=== PATIENT | female | born 1975 | race Caucasian/White ===

== ENCOUNTER → 2018-02-01 | Outpatient (CLI) | payer BC ==
--- NOTE | 2018-02-06 08:33 | MM ---
Reason for exam: screening (asymptomatic). Last mammogram was performed 13 years and 9 months ago. History: Family history of breast cancer. Physical Findings: A clinical breast exam by your physician is recommended on an annual basis and results should be correlated with mammographic findings. MG 3D Screening Mammo W/Cad Bilateral CC and MLO view(s) were taken. Prior study comparison: April 21, 2004, bilateral diagnostic mammogram. There are scattered fibroglandular densities. There is a round right upper outer quadrant probable lymph node. No suspicious abnormality in the left breast. Right upper outer quadrant distortion 7cm from nipple. These results were verbally communicated with the patient and result sheet given to the patient on 02/01/18. ASSESSMENT: Incomplete: need additional imaging evaluation, BI-RAD 0 RECOMMENDATION: Ultrasound of the right breast. [facility] will attempt to contact patient to return for ultrasound.
== END | disposition home or self-care (01) ==
LOC: RADMAMWWP 08:49
PROVIDERS: ATTEND Obstetrics & Gynecology Obstetrics
DX: Z12.31 Encounter for screening mammogram for malignant neoplasm of breast (principal)
CPT/HCPCS: 77063; 77067

== ENCOUNTER → 2018-03-01 | Outpatient (CLI) | payer BC ==
--- NOTE | 2018-03-03 12:20 | USB ---
Reason for exam: additional evaluation requested from abnormal screening. History: Family history of breast cancer. Physical Findings: Nurse Summary: a 1 cm palpable abnormality at 10 o'clock. US Breast Workup Limited RT Right limited breast ultrasound including focal area of concern, retroareolar and axilla demonstrates a 5 x 5 mm oval lymph node at 11 o'clock. These results were verbally communicated with the patient and result sheet given to the patient on 03/01/18. ASSESSMENT: Benign, BI-RAD 2 RECOMMENDATION: Routine screening mammogram of both breasts in 1 year.
== END | disposition home or self-care (01) ==
LOC: RADUSWWP 08:47
PROVIDERS: ATTEND Obstetrics & Gynecology Obstetrics
DX: R92.8 Other abnormal and inconclusive findings on diagnostic imaging of breast (principal)

== ENCOUNTER → 2018-03-15 | Outpatient (CLI) | payer BC ==
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
== END ==
LOC: RADMRIMAIN 20:02
PROVIDERS: ATTEND Family Medicine
DX: M47.22 Other spondylosis with radiculopathy, cervical region (principal)
CPT/HCPCS: 72141

== ENCOUNTER → 2019-12-25 | Outpatient (CLI) | payer BC ==
--- NOTE | 2019-12-26 09:40 | MM ---
Reason for exam: screening (asymptomatic). Last mammogram was performed 1 year and 11 months ago. History: Family history of breast cancer. Physical Findings: A clinical breast exam by your physician is recommended on an annual basis and results should be correlated with mammographic findings. MG 3D Screening Mammo W/Cad Bilateral CC and MLO view(s) were taken. Prior study comparison: February 01, 2018, bilateral MG 3d screening mammo w/cad. April 21, 2004, bilateral diagnostic mammogram. The breast tissue is heterogeneously dense. This may lower the sensitivity of mammography. There is no discrete abnormality. No significant changes when compared with prior studies. ASSESSMENT: Negative, BI-RAD 1 RECOMMENDATION: Routine screening mammogram of both breasts in 1 year.
== END | disposition home or self-care (01) ==
LOC: RADMAMWWP 14:28
PROVIDERS: ATTEND Obstetrics & Gynecology Obstetrics
DX: Z12.31 Encounter for screening mammogram for malignant neoplasm of breast (principal)
CPT/HCPCS: 77063; 77067

== ENCOUNTER → 2021-11-28 | Outpatient (CLI) | payer BC ==
--- NOTE | 2021-11-29 08:10 | MM ---
Reason for Exam: Screening (asymptomatic). Last mammogram was performed 1 year(s) and 11 month(s) ago. Patient History: Menarche at age 13. Maternal cousin had breast cancer, age 40. Last menstrual period: 11/17/2021 Risk Values: Vera 5 year model risk: 0.6%. NCI Lifetime model risk: 7.0%. Prior Study Comparison: 04/21/2004 Bilateral Diagnostic Mammogram, [facility]. 02/01/2018 Bilateral Screening Mammogram, [facility]. 12/25/2019 Bilateral Screening Mammogram, [facility]. Tissue Density: The breast tissue is heterogeneously dense. This may lower the sensitivity of mammography. Findings: Analyzed By CAD. There is no suspicious group of microcalcifications or new suspicious mass in either breast. Stable chronic nodularity within the right breast. No significant change from prior exams. Overall Assessment: Benign, BI-RAD 2 Management: Screening Mammogram of both breasts in 1 year. A clinical breast exam by your physician is recommended on an annual basis and results should be correlated with mammographic findings. Electronically signed and approved by: Gianfranco Hoff D.O.
== END | disposition home or self-care (01) ==
LOC: RADMAMWWP 07:34
PROVIDERS: ATTEND Obstetrics & Gynecology Obstetrics
DX: Z12.31 Encounter for screening mammogram for malignant neoplasm of breast (principal); Z80.3 Family history of malignant neoplasm of breast
CPT/HCPCS: 77063; 77067

== ENCOUNTER 2022-11-04 12:54 | Emergency (ER) | payer BC ==
[2022-11-04 13:15] VITALS: RESP 20
--- NOTE | 2022-11-04 14:21 | ED ---
Animal Bite HPI - General Source: patient, RN notes reviewed Mode of arrival: ambulatory Limitations: no limitations <Abdoulaye Garcia - Last Filed: 11/04/22 14:19> <Nigel Velez - Last Filed: 11/04/22 16:03> - General Chief Complaint: Animal Bite Stated Complaint: Dog Bite Time Seen by Provider: 11/04/22 14:20 - History of Present Illness Initial Comments: 47-year-old female presents emergency from chief complaint of dog bite/puncture wound to her right hand. This happened 2 daysand Augmentin yesterday she states she did have some pain in her epigastric that's improved today states that she noticed increasing red streaking up to her right elbow region. Patient states that this was her dog. Patient up-to-date on tetanus. (Abdoulaye Garcia) 47-year-old female presenting to the ED with a chief complaint of right hand wound. Patient states 2 days ago her dogs were fighting. States that she stuck her right hand into her dog's mouth to pull him off. Notes in this process one of the dogs teeth punctured her right hand between her thumb and index finger. States started to develop redness and swelling of this and followed up with her PCP who placed her on Augmentin yesterday. Since then reports worsening pain and swelling of the hand and now streaking up the arm. Denies fever. Tetanus up to date. No other complaints. (Nigel Velez) - Related Data Allergies Allergy/AdvReac Type Severity Reaction Status Date / Time No Known Allergies Allergy Verified 11/04/22 13:15 Review of Systems ROS Other: All systems not noted in ROS Statement are negative. <Abdoulaye Garcia - Last Filed: 11/04/22 14:19> ROS Other: All systems not noted in ROS Statement are negative. <Nigel Velez - Last Filed: 11/04/22 16:03> ROS Statement: Those systems with pertinent positive or pertinent negative responses have been documented in the HPI. Past Medical History Past Medical History: No Reported History Past Surgical History: Tubal Ligation Additional Past Surgical History / Comment(s): bladder lift Smoking Status: Never smoker Past Alcohol Use History: None Reported Past Drug Use History: None Reported <Abdoulaye Garcia - Last Filed: 11/04/22 14:19> General Exam Limitations: no limitations <Abdoulaye Garcia - Last Filed: 11/04/22 14:19> General appearance: alert, in no apparent distress Eye exam: Present: normal appearance Neck exam: Present: normal inspection Respiratory exam: Present: normal lung sounds bilaterally Cardiovascular Exam: Present: regular rate, normal rhythm GI/Abdominal exam: Present: soft Extremities exam: Present: other (Strength and sensation of right upper extremity intact. Full active flexion and extension of the fingers without significant pain. Patient's right hand does have a punctate lesion in the webspace between digits 1 and 2 without active drainage. ) Neurological exam: Present: alert, oriented X3 Skin exam: Present: other (Warmth, swelling, erythema of the right hand circumfrential with streaking up the arm ) <Nigel Velez - Last Filed: 11/04/22 16:03> - General Exam Comments Initial Comments: Visual Physical Exam Vital signs reviewed General: Well-appearing, nontoxic, no acute distress. Head: Normocephalic, atraumatic Eyes: PERRLA, EOMI ENT: Airway patent Chest: Nonlabored breathing Skin: No visual rash, normal skin tone Neuro: Alert and oriented 3 Musculoskeletal: No gross abnormalities (Abdoulaye Garcia) Course Vital Signs 11/04/22 13:11 Temperature 98.4 F Pulse Rate 97 Respiratory 20 Rate Blood Pressure 127/81 O2 Sat by Pulse 98 Oximetry Medical Decision Making <Abdoulaye Garcia - Last Filed: 11/04/22 14:19> - Lab Data Result diagrams: 11/04/22 14:16 11/04/22 14:16 <Nigel Velez - Last Filed: 11/04/22 16:03> - Medical Decision Making I performed a quick note portion of this chart signed Abdoulaye Garcia PA-C (Abdoulaye Garcia) Was pt. sent in by a medical professional or institution (SANJEEV Zarco, SAND CUTTING MACHINE OPERATOR, urgent care, hospital, or halfway...) When possible be specific @ -No Did you speak to anyone other than the patient for history (EMS, parent, family, police, friend...)? What history was obtained from this source @ -No Did you review nursing and triage notes (agree or disagree)? Why? @ -I reviewed and agree with nursing and triage notes Were old charts reviewed (outside hosp., previous admission, EMS record, old EKG, old radiological studies, urgent care reports/EKG's, halfway records)? Report findings @ -No old charts were reviewed Differential Diagnosis (chest pain, altered mental status, abdominal pain women, abdominal pain men, vaginal bleeding, weakness, fever, dyspnea, syncope, headache, dizziness, GI bleed, back pain, seizure, CVA, palpatations, mental health, musculoskeletal)? @ -Differential Musculoskeletal Muscular strain, contusion, ligament sprain, fracture, arthritis, septic arthritis, bursitis, cellulitis, muscle spasm, nerve compression, DVT, arterial occlusion, herpes zoster, electrolyte abnormality, tumor.... This is not meant to be in all inclusive list EKG interpreted by me (3pts min.). @ -None X-rays interpreted by me (1pt min.). @ -None done CT interpreted by me (1pt min.). @ -None done U/S interpreted by me (1pt. min.). @ -None done What testing was considered but not performed or refused? (CT, X-rays, U/S, labs)? Why? @ -None What meds were considered but not given or refused? Why? @ -None Did you discuss the management of the patient with other professionals (professionals i.e. , PA, SAND CUTTING MACHINE OPERATOR, lab, RT, psych nurse, social work assistant, blind lacer, teacher, pharmaceutical officer, director case management)? Give summary @ -No Was smoking cessation discussed for >3mins.? @ -No Was critical care preformed (if so, how long)? @ -No Were there social determinants of health that impacted care today? How? (Homelessness, low income, unemployed, alcoholism, drug addiction, t ransportation, low edu. Level, literacy, decrease access to med. care, [facility], rehab)? @ -No Was there de-escalation of care discussed even if they declined (Discuss DNR or withdrawal of care, Hospice)? DNR status @ -No What co-morbidities impacted this encounter? (DM, HTN, Smoking, COPD, CAD, Cancer, CVA, ARF, Chemo, Hep., AIDS, mental health diagnosis, sleep apnea, morbid obesity)? @ -None Was patient admitted / discharged? Hospital course, mention meds given and route, prescriptions, significant lab abnormalities, going to OR and other pertinent info. @ -Left AMA 47-year-old female presents to the ED with a chief complaint of wound to right hand. Blood cultures obtained. Laboratory studies did show elevation of white blood cell count at 10.9 and elevated neutrophils 8.7 otherwise laboratory studies including chemistry panel unremarkable. Due to failure of outpatient treatment now streaking up the arm patient was advised observation stay for IV antibiotics. At this time, patient declined and left AMA as patient notes she was just hired at her new job and is on a 90 day probation period. Was provided 3 g dose of IV Unasyn prior to patient leaving. Undiagnosed new problem with uncertain prognosis? @ -No Drug Therapy requiring intensive monitoring for toxicity (Heparin, Nitro, Insulin, Cardizem)? @ -No Were any procedures done? @ -No Diagnosis/symptom? @ -Cellulitis right hand, dog bite Acute, or Chronic, or Acute on Chronic? @ -Acute Uncomplicated (without systemic symptoms) or Complicated (systemic symptoms)? @ -Uncomplicated Side effects of treatment? @ -No Exacerbation, Progression, or Severe Exacerbation? @ -No Poses a threat to life or bodily function? How? (Chest pain, [place], [place], pneumonia, PE, COPD, DKA, ARF, appy, cholecystitis, CVA, Diverticulitis, Homicidal, Suicidal, threat to staff... and all critical care pts) @ -Yes, significant cellulitis (Nigel Velez) - Lab Data Lab Results 11/04/22 11/04/22 11/04/22 Range/Units 14:16 14:16 14:16 WBC 10.9 H (3.8-10.6) k/uL RBC 4.66 (3.80-5.40) m/uL Hgb 14.4 (11.4-16.0) gm/dL Hct 42.3 (34.0-46.0) % MCV 90.8 (80.0-100.0) fL MCH 30.8 (25.0-35.0) pg MCHC 33.9 (31.0-37.0) g/dL RDW 12.3 (11.5-15.5) % Plt Count 262 (150-450) k/uL MPV 7.4 Neutrophils % 80 % Lymphocytes % 14 % Monocytes % 5 % Eosinophils % 0 % Basophils % 0 % Neutrophils # 8.7 H (1.3-7.7) k/uL Lymphocytes # 1.5 (1.0-4.8) k/uL Monocytes # 0.5 (0-1.0) k/uL Eosinophils # 0.0 (0-0.7) k/uL Basophils # 0.0 (0-0.2) k/uL Sodium 138 (137-145) mmol/L Potassium 4.8 (3.5-5.1) mmol/L Chloride 103 (98-107) mmol/L Carbon Dioxide 24 (22-30) mmol/L Anion Gap 11 mmol/L BUN 20 H (7-17) mg/dL Creatinine 0.87 (0.52-1.04) mg/dL Est GFR (CKD-EPI)AfAm >90 (>60 ml/min/1.73 sqM) Est GFR (CKD-EPI)NonAf 80 (>60 ml/min/1.73 sqM) Glucose 111 H (74-99) mg/dL Plasma Lactic Acid Jose 1.0 (0.7-2.0) mmol/L Calcium 9.8 (8.4-10.2) mg/dL Total Bilirubin 1.0 (0.2-1.3) mg/dL AST 34 (14-36) U/L ALT 33 (4-34) U/L Alkaline Phosphatase 87 (38-126) U/L Total Protein 7.4 (6.3-8.2) g/dL Albumin 4.2 (3.5-5.0) g/dL Disposition <Abdoulaye Garcia - Last Filed: 11/04/22 14:19> Time of Disposition: 16:03 <Nigel Velez - Last Filed: 11/04/22 16:03> Clinical Impression: Cellulitis of right hand Disposition: LEFT AGAINST MEDICAL ADVICE Instructions (If sedation given, give patient instructions): Animal Bite (ED) Referrals: Emilio Barr DO [Primary Care Provider] - 1-2 days
[2022-11-04 14:34] LABS: Basophils % (A) 0 %; Eosinophils % (A) 0 %; HCT 42.3 % (34.0-46.0); HGB 14.4 gm/dL (11.4-16.0); Lymphocytes # (A) 1.5 k/uL (1.0-4.8); Lymphocytes % (A) 14 %; MCH 30.8 pg (25.0-35.0); MCHC 33.9 g/dL (31.0-37.0); MCV 90.8 fL (80.0-100.0); Mean Platelet Volume 7.4; Monocytes # (A) 0.5 k/uL (0-1.0); Monocytes % (A) 5 %; Neutrophils # (A) 8.7 k/uL (1.3-7.7); Neutrophils % (A) 80 %; Platelet Count 262 k/uL (150-450); RBC 4.66 m/uL (3.80-5.40); RDW 12.3 % (11.5-15.5); WBC 10.9 k/uL (3.8-10.6)
[2022-11-04 14:51] LABS: ALT 33 U/L (4-34); AST 34 U/L (14-36); African American GFR (CKD) >90 (>60 ml/min/1.73 sqM); Albumin 4.2 g/dL (3.5-5.0); Alkaline Phosphatase 87 U/L (38-126); Anion Gap 11 mmol/L; Blood Urea Nitrogen 20 mg/dL (7-17); Calcium 9.8 mg/dL (8.4-10.2); Carbon Dioxide 24 mmol/L (22-30); Chloride 103 mmol/L (98-107); Glucose 111 mg/dL (74-99); Non-African American GFR(CKD) 80 (>60 ml/min/1.73 sqM); Potassium 4.8 mmol/L (3.5-5.1); Sodium 138 mmol/L (137-145); Total Protein 7.4 g/dL (6.3-8.2)
--- NOTE | 2022-11-04 15:22 | XR ---
Right hand. HISTORY: Cellulitis. COMPARISON: None. TECHNIQUE: 3 views the right hand were obtained. FINDINGS: There is no fracture, dislocation, intraosseous or intra-articular abnormality. There is no soft tiss ue abnormality seen no radiopaque foreign body or soft tissue gas. There is no cortical destruction o r periosteal reaction. IMPRESSION: No significant abnormality seen.
[2022-11-04] MEDS ORDERED: AMPICILLIN-SULBACTAM 3 GM in SODIUM CHLORIDE 0.9% 100 ML IVPB STA (15:47)
[2022-11-04 17:34] VITALS: BP 122/76; PULSE 90; TEMP 98.2
== END 2022-11-04 17:31 | disposition left against medical advice (07) ==
LOC: EC 12:54
DX: S61.451A Open bite of right hand, initial encounter (principal); L03.113 Cellulitis of right upper limb; Z53.29 Procedure and treatment not carried out because of patient's decision for other reasons; W54.0XXA Bitten by dog, initial encounter
CPT/HCPCS: 36415; 80053; 83605; 85025; 87040; 73130; 99283; 96365; J0295

== ENCOUNTER 2023-12-02 10:22 | Emergency (ER) | payer SELFPAY ==
[2023-12-02 10:37] VITALS: TEMP 98
[2023-12-02 10:55] VITALS: RESP 16
[2023-12-02] MEDS: SODIUM CHLORIDE 0.9% 1,000 ML IV STA ×2 (11:23→12:45)
[2023-12-02] MEDS: HYDROmorphone 0.5 MG/0.5 ML SYRINGE IVP STA ×2 (11:27→12:47)
[2023-12-02] MEDS: ONDANSETRON 4 MG/2 ML VIAL IVP STA (11:32)
[2023-12-02] MEDS: KETOROLAC 15 MG/ML 1 ML VIAL IVP STA ×2 (11:35→12:50)
--- NOTE | 2023-12-02 11:46 | ED ---
Abdominal Pain HPI - General Chief Complaint: Abdominal Pain Stated Complaint: Abdominal Pain Time Seen by Provider: 12/02/23 10:47 Source: patient, RN notes reviewed Mode of arrival: ambulatory Limitations: no limitations - History of Present Illness Initial Comments: This is a 48-year-old female presenting with nausea, vomiting and abdominal pain (8 out of 10) x 2 days. Patient states she got possible food poisoning either from a make chicken sandwich or bad creamer yesterday. Patient endorses decreased appetite and chills. States she is unable to keep food down and has just recently been able to hold down Gatorade. Endorses vomiting bile but not fluid or blood. Patient states pain is worse in left lower quadrant with no history of diverticulitis. Patient denies fever, body aches, chest pain, dyspnea, diarrhea, constipation, dizziness. MD Complaint: abdominal pain Onset/Timin -: days(s) Location: LLQ Radiation: none Migration to: no migration Severity scale (1-10): 8 Consistency: constant Worsens With: eating Context: possible food poisoning Associated Symptoms: nausea, vomiting, chills Treatments Prior to Arrival: NSAIDs - Related Data Allergies Allergy/AdvReac Type Severity Reaction Status Date / Time No Known Allergies Allergy Verified 12/02/23 10:37 Review of Systems ROS Statement: Those systems with pertinent positive or pertinent negative responses have been documented in the HPI. ROS Other: All systems not noted in ROS Statement are negative. Past Medical History Past Medical History: No Reported History Past Surgical History: Tubal Ligation Additional Past Surgical History / Comment(s): bladder lift Smoking Status: Never smoker Past Alcohol Use History: Occasional Past Drug Use History: None Reported General Exam Limitations: no limitations General appearance: alert, in no apparent distress Head exam: Present: atraumatic, normocephalic, normal inspection Eye exam: Present: normal appearance, PERRL, EOMI. Absent: scleral icterus, conjunctival injection, periorbital swelling ENT exam: Present: normal exam, mucous membranes moist Neck exam: Present: normal inspection. Absent: tenderness, meningismus, lymphadenopathy Respiratory exam: Present: normal lung sounds bilaterally. Absent: respiratory distress, wheezes, rales, rhonchi, stridor Cardiovascular Exam: Present: regular rate, normal rhythm, normal heart sounds. Absent: systolic murmur, diastolic murmur, rubs, gallop, clicks GI/Abdominal exam: Present: soft, tenderness (Positive diffuse tenderness especially in left lower quadrant and left upper quadrant. Negative guarding, tympanic tenderness, rebound tenderness), diminished bowel sounds. Absent: distended, guarding, rebound, rigid Extremities exam: Present: normal inspection, full ROM, normal capillary refill. Absent: tenderness, pedal edema, joint swelling, calf tenderness Back exam: Present: normal inspection Neurological exam: Present: alert, oriented X3, CN II-XII intact Psychiatric exam: Present: normal affect, normal mood Skin exam: Present: warm, dry, intact, normal color. Absent: rash Course Vital Signs 12/02/23 12/02/23 12/02/23 10:33 10:48 11:40 Temperature 98.0 F 98.0 F Pulse Rate 142 H 115 H 16 L Respiratory 20 16 16 Rate Blood Pressure 118/69 131/88 137/67 O2 Sat by Pulse 100 100 98 Oximetry 12/02/23 12/02/23 12:46 13:35 Temperature Pulse Rate 120 H 120 H Respiratory 16 16 Rate Blood Pressure 110/59 110/59 O2 Sat by Pulse 96 96 Oximetry Medical Decision Making - Medical Decision Making Was pt. sent in by a medical professional or institution (, PA, REFINERY SUPERINTENDENT, urgent care, hospital, or intermediate...) When possible be specific @ -No Did you speak to anyone other than the patient for history (EMS, parent, family, police, friend...)? What history was obtained from this source @ -No Did you review nursing and triage notes (agree or disagree)? Why? @ -I reviewed and agree with nursing and triage notes Were old charts reviewed (outside hosp., previous admission, EMS record, old EKG, old radiological studies, urgent care reports/EKG's, intermediate records)? Report findings @ -No old charts were reviewed Differential Diagnosis (chest pain, altered mental status, abdominal pain women, abdominal pain men, vaginal bleeding, weakness, fever, dyspnea, syncope, headache, dizziness, GI bleed, back pain, seizure, CVA, palpatations, mental health, musculoskeletal)? @ -Differential Abdominal Pain Women: Appendicitis, Cholecystitis, diverticulosis, ischemic bowel, pancreatitis, hepatitis, UTI, gastroenteritis, AAA, incarcerated hernia, bowel obstruction, constipation, inflammatory bowel, hepatitis, peptic ulcer disease, splenic infarction, perforated viscus, vulvitis, ovarian torsion, PID, kidney stone, placenta abruption, this is not meant to be an all-inclusive list EKG interpreted by me (3pts min.). @ -Not done X-rays interpreted by me (1pt min.). @ -None done CT interpreted by me (1pt min.). @ -None done U/S interpreted by me (1pt. min.). @ -None done What testing was considered but not performed or refused? (CT, X-rays, U/S, labs)? Why? @ -None What meds were considered but not given or refused? Why? @ -None Did you discuss the management of the patient with other professionals (professionals i.e. , PA, REFINERY SUPERINTENDENT, lab, RT, psych nurse, dialysis social worker, radio electrician, teacher, health officer, case planner)? Give summary @ -No Was smoking cessation discussed for >3mins.? @ -No Was critical care preformed (if so, how long)? @ -No Were there social determinants of health that impacted care today? How? (Homelessness, low income, unemployed, alcoholism, drug addiction, transportation, low edu. Level, literacy, decrease access to med. care, group home, rehab)? @ -No Was there de-escalation of care discussed even if they declined (Discuss DNR or withdrawal of care, Hospice)? DNR status @ -No What co-morbidities impacted this encounter? (DM, HTN, Smoking, COPD, CAD, Cancer, CVA, ARF, Chemo, Hep., AIDS, mental health diagnosis, sleep apnea, morbid obesity)? @ -None Was patient admitted / discharged? Hospital course, mention meds given and r oute, prescriptions, significant lab abnormalities, going to OR and other pertinent info. @ -Discharge. Patient given IV normal saline, Toradol and Dilaudid for symptoms. Patient notes improvement in symptoms. Work note provided upon request. Patient sent home with [employer] starter pack. Advised increase oral fluid intake, comfort khadar/comfort tea and AARON diet Undiagnosed new problem with uncertain prognosis? @ -No Drug Therapy requiring intensive monitoring for toxicity (Heparin, Nitro, Insulin, Cardizem)? @ -No Were any procedures done? @ -No Diagnosis/symptom? @ -Foodborne intoxication, acute gastroenteritis Acute, or Chronic, or Acute on Chronic? @ -Acute Uncomplicated (without systemic symptoms) or Complicated (systemic symptoms)? @ -Uncomplicated Side effects of treatment? @ -No Exacerbation, Progression, or Severe Exacerbation? @ -No Poses a threat to life or bodily function? How? (Chest pain, [place], [place], pneumonia, PE, COPD, DKA, ARF, appy, cholecystitis, CVA, Diverticulitis, Homicidal, Suicidal, threat to staff... and all critical care pts) @ -No - Lab Data Lab Results 12/02/23 Range/Units 11:22 Urine HCG, Qual Not Detected (Not Detectd) Disposition Clinical Impression: Gastroenteritis, Food poisoning Disposition: HOME SELF-CARE Condition: Good Instructions (If sedation given, give patient instructions): Gastroenteritis (ED), Food Poisoning (ED) Is patient prescribed a controlled substance at d/c from ED?: No Referrals: Emilio Barr DO [Primary Care Provider] - 1-2 days Time of Disposition: 13:18
[2023-12-02 12:47] VITALS: BP 110/59; PULSE 120
[2023-12-02] MEDS: ONDANSETRON 4 MG ODT STARTER PACK 2 TAB BTL PO STA (13:38)
== END 2023-12-02 13:47 | disposition home or self-care (01) ==
LOC: EC 10:22
CPT/HCPCS: 81025; 96361; 96374; 96375; 96376; 99284

== ENCOUNTER 2023-12-08 09:08 | Inpatient (IN) | payer OTHER ==
--- NOTE | 2023-12-08 09:46 | ED ---
General Adult HPI - General Chief complaint: Abdominal Pain Stated complaint: Nausea, SOB Time Seen by Provider: 12/08/23 09:14 Source: patient Mode of arrival: wheelchair Limitations: no limitations - History of Present Illness Initial comments: Dictation was produced using [employer] dictation software. please excuse any grammatical, word or spelling errors. Chief Complaint: 48-year-old female presents to the emergency department with nausea clamminess and indigestion History of Present Illness: Patient 48-year-old female she was seen here in the emergency department 5 days ago. She was seen here for abdominal pain. Today she is here today because she was at work started to feel little lightheaded sweaty and nauseated. Her coworkers asked her if she was feeling okay she said no. She came to the emergency department. Denies any chest pain. Patient has been dealing with reflux symptoms for the last several days. She is not sure if she is undergoing menopause. She still has her periods denies any fever. She does complain of some mild chills. No obvious sick contacts. The ROS documented in this emergency department record has been reviewed and confirmed by me. Those systems with pertinent positive or negative responses have been documented in the HPI. All other systems are other negative and/or noncontributory. - Related Data Allergies Allergy/AdvReac Type Severity Reaction Status Date / Time No Known Allergies Allergy Verified 12/08/23 09:13 Review of Systems ROS Statement: Those systems with pertinent positive or pertinent negative responses have been documented in the HPI. ROS Other: All systems not noted in ROS Statement are negative. Past Medical History Past Medical History: No Reported History Past Surgical History: Tubal Ligation Additional Past Surgical History / Comment(s): bladder lift Past Psychological History: No Psychological Hx Reported Smoking Status: Never smoker Past Alcohol Use History: Occasional Past Drug Use History: None Reported General Exam - General Exam Comments Initial Comments: PHYSICAL EXAM: General Impression: Alert and oriented x3, not in acute distress HEENT: Normocephalic atraumatic, extra-ocular movements intact, pupils equal and reactive to light bilaterally, mucous membranes moist. Cardiovascular: Heart regular rate and rhythm Chest: Able to complete full sentences, no retractions, no tachypnea Abdomen: abdomen soft, non-tender, non-distended, no organomegaly Musculoskeletal: Pulses present and equal in all extremities, no peripheral edema Motor: no focal deficits noted Neurological: CN II-XII grossly intact, no focal motor or sensory deficits noted Skin: Intact with no visualized rashes Psych: Normal affect and mood Limitations: no limitations Course Vital Signs 12/08/23 12/08/23 12/08/23 09:10 10:13 12:00 Temperature 97.6 F Pulse Rate 123 H 89 86 Respiratory 16 18 17 Rate Blood Pressure 113/70 125/75 114/71 O2 Sat by Pulse 99 98 98 Oximetry EKG Findings - EKG Comments: EKG Findings:: My EKG interpretation: Ventricular rate 96, sinus rhythm,. 130, QRS 89, QTc 3-6. No [place] prolongation, no QTC prolongation, no ST or T-wave changes noted.. Overall, this EKG is unremarkable Medical Decision Making - Medical Decision Making Was pt. sent in by a medical professional or institution (, PA, CO CHAIRMAN, urgent care, hospital, or shelter...) When possible be specific @ -No Did you speak to anyone other than the patient for history (EMS, parent, family, police, friend...)? What history was obtained from this source @ -No Did you review nursing and triage notes (agree or disagree)? Why? @ -I reviewed and agree with nursing and triage notes Were old charts reviewed (outside hosp., previous admission, EMS record, old EKG, old radiological studies, urgent care reports/EKG's, shelter records)? Report findings @ -No old charts were reviewed Differential Diagnosis (chest pain, altered mental status, abdominal pain women, abdominal pain men, vaginal bleeding, musculoskeletal, weakness, fever, dyspnea, syncope, headache, dizziness, GI bleed, back pain, seizure, CVA, palpatations, mental health)? @ -Differential Weakness: Hypoglycemia, shock, sepsis, hyponatremia, anemia, infection, MA, ETOH, adverse medicine reaction, overdose, stroke, this is not meant to be an all-inclusive list. EKG interpreted by me (3pts min.). @ -See above X-rays interpreted by me (1pt min.). @ -None done CT interpreted by me (1pt min.). @ -CT of the chest shows no pulmonary emboli. There does appear to be some stranding at the superior pole of the left kidney. Abdomen bladder ultrasound shows no acute processes. Left kidney on CT abdomen pelvis shows enlargement. U/S interpreted by me (1pt. min.). @ -None done What testing was considered but not performed or refused? (CT, X-rays, U/S, labs)? Why? @ -None What meds were considered but not given or refused? Why? @ -None Was smoking cessation discussed for >3mins.? @ -No Were there social determinants of health that impacted care today? How? (Homelessness, low income, unemployed, alcoholism, drug addiction, transportation, low edu. Level, literacy, decrease access to med. care, fdc, rehab)? @ -No Was there de-escalation of care discussed even if they declined (Discuss DNR or withdrawal of care, Hospice)? DNR status @ -No What co-morbidities impacted this encounter? (DM, HTN, Smoking, COPD, CAD, Cancer, CVA, ARF, Chemo, Hep., AIDS, mental health diagnosis, sleep apnea, morbid obesity)? @ -None Was patient admitted / discharged? Hospital course, mention meds given and route, prescriptions, significant lab abnormalities, going to OR and other pertinent info. @ -48-year-old female presents to the emergency department with abdominal pain, indigestion shortness of breath. Vital signs upon arrival shows tachycardia. 123. Patient seems very tremulous at the bedside. But she is afebrile. Leukocytosis 16.5. Hemoglobin 10.4. Coag panel is negative. D-dimer is 5.69. Metabolic panel is within acceptable limits. Urinalysis shows [address] of the chest was obtained due to elevated D-dimer. No pulmonary embolism. There was incidental finding of enlarged what appears to be mass of the left upper kidney. Ultrasound was unremarkable. Radiology recommended CT of the abdomen pelvis. Did receive a call from radiology regarding patient's CT of the abdomen pelvis. Radiologist mentioned that there is moderate left hydronephrosis with stranding pyelonephritis. With 6 mm focus at the UPJ. There is also rupture of the calyx Case was discussed with on-call urologist Dr. Rae who agreeable to admit patient. He is planning to take patient to operating room tonight. Labs imaging results and plan was discussed with patient was agreeable. Started on antibiotics. Did you discuss the management of the patient with other professionals (professionals i.e. , PA, CO CHAIRMAN, lab, RT, psych nurse, social service coordinator, radiologic technologist chief, teacher, chief technical officer, case therapist)? Give summary @ -No Was critical care preformed (if so, how long)? @ -No Undiagnosed new problem with uncertain prognosis? @ -No Drug Therapy requiring intensive monitoring for toxicity (Heparin, Nitro, Insulin, Cardizem)? @ -No Were any procedures done? @ -No Diagnosis/symptom? Acute, or Chronic, or Acute on Chronic? Uncomplicated (without systemic symptoms) or Complicated (systemic symptoms)? @ -Pyelonephritis Side effects of treatment? @ -No Exacerbation, Progression, or Severe Exacerbation? @ -No Poses a threat to life or bodily function? How? (Chest pain, USA, MA, pneumonia, PE, COPD, DKA, ARF, appy, cholecystitis, CVA, Diverticulitis, Homicidal, Suicidal, threat to staff... and all critical care pts) @ -yes - Lab Data Result diagrams: 12/08/23 09:45 12/08/23 09:45 Lab Results 12/08/23 12/08/23 12/08/23 Range/Units 09:34 09:34 09:45 WBC 16.5 H (3.8-10.6) k/uL RBC 3.45 L (3.80-5.40) m/uL Hgb 10.4 L (11.4-16.0) gm/dL Hct 30.4 L (34.0-46.0) % MCV 88.0 (80.0-100.0) fL MCH 30.1 (25.0-35.0) pg MCHC 34.2 (31.0-37.0) g/dL RDW 13.2 (11.5-15.5) % Plt Count 217 (150-450) k/uL MPV 8.1 Neutrophils % 91 % Lymphocytes % 5 % Monocytes % 3 % Eosinophils % 0 % Basophils % 0 % Neutrophils # 15.0 H (1.3-7.7) k/uL Lymphocytes # 0.7 L (1.0-4.8) k/uL Monocytes # 0.5 (0-1.0) k/uL Eosinophils # 0.0 (0-0.7) k/uL Basophils # 0.0 (0-0.2) k/uL PT (10.0-12.5) sec INR (<1.2) APTT (22.0-30.0) sec D-Dimer (<0.60) mg/L FEU Sodium (137-145) mmol/L Potassium (3.5-5.1) mmol/L Chloride (98-107) mmol/L Carbon Dioxide (22-30) mmol/L Anion Gap mmol/L BUN (7-17) mg/dL Creatinine (0.52-1.04) mg/dL Est GFR (CKD-EPI)AfAm (>60 ml/min/1.73 sqM) Est GFR (CKD-EPI)NonAf (>60 ml/min/1.73 sqM) Glucose (74-99) mg/dL Calcium (8.4-10.2) mg/dL Troponin I (0.000-0.034) ng/mL Urine Color Colorless Urine Appearance Clear (Clear) Urine pH 6.5 (5.0-8.0) Ur Specific [place] 1.005 (1.001-1.035) Urine Protein Trace H (Negative) Urine Glucose (UA) Negative (Negative) Urine Ketones Negative (Negative) Urine Blood Small H (Negative) Urine Nitrite Negative (Negative) Urine Bilirubin Negative (Negative) Urine Urobilinogen <2.0 (<2.0) mg/dL Ur Leukocyte Esterase Moderate H (Negative) Urine RBC 2 (0-5) /hpf Urine WBC 8 H (0-5) /hpf Ur Squamous Epith Cells <1 (0-4) /hpf Urine Bacteria Few H (None) /hpf Urine Mucus Rare H (None) /hpf Urine HCG, Qual Not Detected (Not Detectd) 12/08/23 12/08/23 12/08/23 Range/Units 09:45 09:45 09:45 WBC (3.8-10.6) k/uL RBC (3.80-5.40) m/uL Hgb (11.4-16.0) gm/dL Hct (34.0-46.0) % MCV (80.0-100.0) fL MCH (25.0-35.0) pg MCHC (31.0-37.0) g/dL RDW (11.5-15.5) % Plt Count (150-450) k/uL MPV Neutrophils % % Lymphocytes % % Monocytes % % Eosinophils % % Basophils % % Neutrophils # (1.3-7.7) k/uL Lymphocytes # (1.0-4.8) k/uL Monocytes # (0-1.0) k/uL Eosinophils # (0-0.7) k/uL Basophils # (0-0.2) k/uL PT 12.2 (10.0-12.5) sec INR 1.1 (<1.2) APTT 24.0 (22.0-30.0) sec D-Dimer 5.69 H (<0.60) mg/L FEU Sodium 132 L (137-145) mmol/L Potassium 3.4 L (3.5-5.1) mmol/L Chloride 100 (98-107) mmol/L Carbon Dioxide 25 (22-30) mmol/L Anion Gap 7 mmol/L BUN 20 H (7-17) mg/dL Creatinine 1.12 H (0.52-1.04) mg/dL Est GFR (CKD-EPI)AfAm 68 (>60 ml/min/1.73 sqM) Est GFR (CKD-EPI)NonAf 59 (>60 ml/min/1.73 sqM) Glucose 106 H (74-99) mg/dL Calcium 8.3 L (8.4-10.2) mg/dL Troponin I <0.012 (0.000-0.034) ng/mL Urine Color Urine Appearance (Clear) Urine pH (5.0-8.0) Ur Specific [place] (1.001-1.035) Urine Protein (Negative) Urine Glucose (UA) (Negative) Urine Ketones (Negative) Urine Blood (Negative) Urine Nitrite (Negative) Urine Bilirubin (Negative) Urine Urobilinogen (<2.0) mg/dL Ur Leukocyte Esterase (Negative) Urine RBC (0-5) /hpf Urine WBC (0-5) /hpf Ur Squamous Epith Cells (0-4) /hpf Urine Bacteria (None) /hpf Urine Mucus (None) /hpf Urine HCG, Qual (Not Detectd) Disposition Clinical Impression: Pyelonephritis Disposition: ADMITTED IP TO THIS [facility] Condition: Serious Referrals: Emilio Barr DO [Primary Care Provider] - 1-2 days Decision Time: 15:32
[2023-12-08 09:55] LABS: Basophils % (A) 0 %; Eosinophils % (A) 0 %; HCT 30.4 % (34.0-46.0); HGB 10.4 gm/dL (11.4-16.0); Lymphocytes # (A) 0.7 k/uL (1.0-4.8); Lymphocytes % (A) 5 %; MCH 30.1 pg (25.0-35.0); MCHC 34.2 g/dL (31.0-37.0); Mean Platelet Volume 8.1; Monocytes # (A) 0.5 k/uL (0-1.0); Monocytes % (A) 3 %; Neutrophils % (A) 91 %; Platelet Count 217 k/uL (150-450); RBC 3.45 m/uL (3.80-5.40); RDW 13.2 % (11.5-15.5); WBC 16.5 k/uL (3.8-10.6)
[2023-12-08] MEDS: ONDANSETRON 4 MG/2 ML VIAL IVP STA (10:00)
[2023-12-08] MEDS: SODIUM CHLORIDE 0.9% 1,000 ML IV STA (10:00)
[2023-12-08 10:03] LABS: African American GFR (CKD) 68 (>60 ml/min/1.73 sqM); Anion Gap 7 mmol/L; Blood Urea Nitrogen 20 mg/dL (7-17); Calcium 8.3 mg/dL (8.4-10.2); Carbon Dioxide 25 mmol/L (22-30); Chloride 100 mmol/L (98-107); Glucose 106 mg/dL (74-99); Non-African American GFR(CKD) 59 (>60 ml/min/1.73 sqM); Potassium 3.4 mmol/L (3.5-5.1); Sodium 132 mmol/L (137-145)
[2023-12-08 10:56] LABS: INR 1.1 (<1.2); Prothrombin Time 12.2 sec (10.0-12.5)
--- NOTE | 2023-12-08 11:54 | CT ---
EXAMINATION TYPE: CT angio chest DATE OF EXAM: 12/08/2023 11:43 AM COMPARISON: None CLINICAL INDICATION: Female, 48 years old with history of positive D-dimer; elevated d-dimer and SOB. recent episode of gastritis TECHNIQUE/CONTRAST: CTA scan of the thorax is performed with IV Contrast, patient injected with 75ml mL of Isovue 370, [place] P images are created and reviewed these are created on a separate workstation.. CT DLP: 343.7 mGycm, Automated exposure control for dose reduction was used. FINDINGS: Pulmonary Artery: There is no evidence for a filling defect within the pulmonary vasculature to sugge st acute pulmonary embolism. The pulmonary artery is of normal size. Lungs/Pleura: No evidence of focal consolidation, pleural effusion or pneumothorax. Bibasilar atelect asis. Small left pleural effusion. Airway: Large airways are patent. Heart: Heart is within normal limits for size. Vasculature: No evidence of aortic aneurysm. Mediastinum: No gross evidence of adenopathy. Musculoskeletal: No acute osseous abnormalities Soft Tissues/lymph nodes: Unremarkable. Lower neck: No significant findings. Upper Abdomen: There is a masslike area in the left upper quadrant which is incompletely evaluated me asuring at least 59 x 79 mm. Fat stranding changes are seen around this lesion. This is near the expe cted location of the kidney. IMPRESSION: 1. No evidence of pulmonary embolism. 2. Small left pleural effusion with bibasilar atelectasis. 3. Left upper quadrant masslike area further evaluation with CT abdomen pelvis with IV and oral contr ast recommended. Follow up recommendations for incidental pulmonary nodules, if there are any, are per [employer] [employer] or [employer]. [email or web address]://radiopaedia.org/articles/vialvgybkv-[email or web address]?lang=us [facility], , 12/08/2023 11:52 AM
[2023-12-08 12:29] LABS: Appearance,Urine Clear (Clear); Bacteria,Urine Few /hpf; Bilirubin,Urine Negative (Negative); Blood,Urine Small (Negative); Color,Urine Colorless; Glucose,Urine (UA) Negative (Negative); Ketones,Urine Negative (Negative); Leukocyte Esterase,Urine Moderate (Negative); Mucus,Urine Rare /hpf; Nitrite,Urine Negative (Negative); PH, Urine 6.5 (5.0-8.0); Protein,Urine Trace (Negative); RBC,Urine 2 /hpf (0-5); Specific Gravity,Urine 1.005 (1.001-1.035); Squamous Epithelial Cell,Urine <1 /hpf (0-4); Urobilinogen,Urine <2.0 mg/dL (<2.0); WBC,Urine 8 /hpf (0-5)
[2023-12-08] MEDS: KETOROLAC 15 MG/ML 1 ML VIAL IVP STA (13:44)
--- NOTE | 2023-12-08 13:46 | US ---
EXAMINATION TYPE: US kidneys/renal and bladder DATE OF EXAM: 12/08/2023 COMPARISON: CT same day CLINICAL INDICATION: Female, 48 years old with history of flank pain; TECHNIQUE: Grayscale and color Doppler imaging of the bilateral kidneys and urinary bladder: FINDINGS: EXAM MEASUREMENTS: Right Kidney: 11.5 x 5.1 x 6.4 cm Left Kidney: 14.6 x 7.2 x 6.8 cm Right Kidney: 1.8cm hypoechoic area lateral mid pole, inferior pole limited by overlying bowel gas Left Kidney: enlarged, hydronephrosis, masslike area seen on CT not clearly seen by ultrasound Bladder: wnl Bilateral Jets seen: no There is no evidence for hydronephrosis at this point in time. No nephrolithiasis is seen. No arturo s are identified. The urinary bladder is anechoic. IMPRESSION: 1. Left renal fossa masslike area on CT not definitively visualized. The recommendations for CT imag ing. Findings could represent normal left kidney. 2. Moderate left hydronephrosis correlate for obstructive uropathy. No evidence for obstructive urop athy. 3. Right renal probable cyst. [facility], Workstation: [id number], 12/08/2023 1:44 PM
[2023-12-08] MEDS: LORazepam 2 MG/ML INJ IV STA (14:12)
--- NOTE | 2023-12-08 15:25 | CT ---
EXAMINATION TYPE: CT abdomen pelvis wo con DATE OF EXAM: 12/08/2023 3:00 PM COMPARISON: CT and ultrasound CLINICAL INDICATION: Female, 48 years old with history of left renal mass; renal mass pain TECHNIQUE: Axial CT abdomen pelvis wo con;Sagittal and coronal reformats were created on a separate workstation. Contrast used: mL of , (none if empty) Oral contrast used: without Oral Contrast (none if empty) CT DLP: 651.3 mGycm, Automated exposure control for dose reduction was used. FINDINGS: LOWER CHEST: Unremarkable ABDOMEN LIVER: Unremarkable GALLBLADDER AND BILE DUCTS: Unremarkable. PANCREAS: Unremarkable. SPLEEN: Unremarkable. ADRENAL GLANDS: Unremarkable. KIDNEYS AND URETERS: Moderate left hydronephrosis secondary obstructing 6 mm focus at the ureteropelv ic junction.. There is filling defects within the left collecting system compared to the right sugges ting blood proximal internal debris. There is suspected calyceal rupture with small collection of pre sumably excreted IV contrast in urine sitting medial and posterior to the kidney. No evidence for rig ht hydronephrosis or obstructing calculus. PELVIS BLADDER: No evidence for wall thickening or mass given limitations of exam. REPRODUCTIVE: Unremarkable. ABDOMEN & PELVIS STOMACH AND BOWEL: No evidence of bowel obstruction. PERITONEUM/RETROPERITONEUM: No evidence of pneumoperitoneum or free fluid. VASCULATURE: No evidence of aortic aneurysm. MUSCULOSKELETAL: No acute osseous abnormalities LYMPH NODES: No gross evidence for lymphadenopathy. SOFT TISSUE/ABDOMINAL WALL: Unremarkable IMPRESSION: 1. Moderate left hydronephrosis with evidence of pyelonephritis/ascending infection secondary obstru cting 6 mm focus at the ureteropelvic junction.. There is also evidence of calyceal rupture with susp ected excreted IV contrast and urine near the renal pelvis. Debris may also be within the collecting system as or filling defects within the left collecting system. Urology consultation recommended. 2. Trace bilateral pleural effusions. [facility], Workstation: [id number], 12/08/2023 3:22 PM
[2023-12-08] MEDS ORDERED: NALOXONE 0.4 MG/ML 1 ML VIAL IV PRN (15:30)
[2023-12-08] MEDS: PIPERACILLIN-TAZOBACTAM 3.375 GM in SODIUM CHLORIDE 0.9% 100 ML IVPB SCH (15:40)
[2023-12-08] MEDS: SODIUM CHLORIDE 0.9% 1,000 ML IV SCH (15:41)
[2023-12-08 16:25] LABS: Amylase <30 U/L (30-110); Lipase 18 U/L (23-300)
[2023-12-08] MEDS ORDERED: LIDOCAINE 1% INJ 10MG/ML (20 ML MDV) ONE (18:02)
[2023-12-08] MEDS ORDERED: fentaNYL (PF) 50 MCG/ML 2 ML AMP ONE (18:02)
[2023-12-08] MEDS ORDERED: PROPOFOL 10 MG/ML 20 ML VIAL IV ONE (18:02)
[2023-12-08] MEDS: LACTATED RINGERS 1,000 ML IV ONE (18:07)
--- NOTE | 2023-12-08 18:14 | P.GSHP ---
History of Present Illness H&P Date: 12/08/23 Chief Complaint: Left ureteral stone This is a 48-year-old female presented to the hospital with abdominal pain, shortness of breath associated with nausea and vomiting. Initially she underwent a CT angiogram that showed no evidence of a pulmonary embolus but abnormality was seen in the left kidney, she subsequently underwent a CT abdomen pelvis that showed evidence of a 7 mm left-sided proximal stone with hydronephrosis and calyceal rupture. Patient was afebrile but she was tachycardic 140. Does have a previous history of kidney stones which she has passed spontaneously, never required any intervention for her stones. On evaluation she is having left upper quadrant left flank pain. - Constitutional Constitutional: Reports chills, Reports malaise, Reports weakness, Denies fever - EENT Eyes: denies blurred vision, denies pain Ears, nose, mouth and throat: Denies headache, Denies sore throat - Cardiovascular Cardiovascular: Reports shortness of breath, Denies chest pain - Respiratory Respiratory: Denies cough, Denies 7 - Gastrointestinal Gastrointestinal: Reports abdominal pain, Reports nausea - Genitourinary (Female) Genitourinary: Reports flank pain, Denies dysuria, Denies hematuria - Genitourinary (Male) Genitourinary: Denies dysuria, Denies hematuria - Musculoskeletal Musculoskeletal: Denies myalgias - Integumentary Integumentary: Denies pruritus, Denies rash - Neurological Neurological: Denies numbness, Denies weakness - Psychiatric Psychiatric: Denies anxiety, Denies depression - Endocrine Endocrine: Denies fatigue, Denies weight change Past Medical History Past Medical History: No Reported History History of Any Multi-Drug Resistant Organisms: None Reported Past Surgical History: Tubal Ligation Additional Past Surgical History / Comment(s): bladder lift Past Anesthesia/Blood Transfusion Reactions: No Reported Reaction Past Psychological History: No Psychological Hx Reported Smoking Status: Never smoker Past Alcohol Use History: Occasional Past Drug Use History: None Reported Medications and Allergies Home Medications Medication Instructions Recorded Confirmed Type Multivitamins, Thera [Multivitamin 1 tab PO DAILY 12/08/23 12/08/23 History (formulary)] Allergies Allergy/AdvReac Type Severity Reaction Status Date / Time No Known Allergies Allergy Verified 12/08/23 15:56 Surgical - Exam Vital Signs Temp Pulse Resp BP Pulse Ox 97.6 F 123 H 16 113/70 99 12/08/23 09:10 12/08/23 09:10 12/08/23 09:10 12/08/23 09:10 12/08/23 09:10 - General well developed, well nourished, no distress - Eyes normal ocular movement, no icteric - ENT no hearing loss, no congestion - Neck no masses, trachea midline - Respiratory normal respiratory effort, clear to auscultation - Abdomen Abdomen: soft, non tender, no guarding, no rigid, no rebound - Integumentary no rash - Neurologic no disoriented, no combative - Psychiatric oriented to time, oriented to person, oriented to place, speech is normal, memor y intact Results - Labs 12/08/23 09:45 12/08/23 09:45 Abnormal Lab Results - Last 24 Hours (Table) 12/08/23 12/08/23 12/08/23 Range/Units 09:34 09:45 09:45 WBC 16.5 H (3.8-10.6) k/uL RBC 3.45 L (3.80-5.40) m/uL Hgb 10.4 L (11.4-16.0) gm/dL Hct 30.4 L (34.0-46.0) % Neutrophils # 15.0 H (1.3-7.7) k/uL Lymphocytes # 0.7 L (1.0-4.8) k/uL D-Dimer (<0.60) mg/L FEU Sodium 132 L (137-145) mmol/L Potassium 3.4 L (3.5-5.1) mmol/L BUN 20 H (7-17) mg/dL Creatinine 1.12 H (0.52-1.04) mg/dL Glucose 106 H (74-99) mg/dL Calcium 8.3 L (8.4-10.2) mg/dL Amylase (30-110) U/L Lipase (23-300) U/L Urine Protein Trace H (Negative) Urine Blood Small H (Negative) Ur Leukocyte Esterase Moderate H (Negative) Urine WBC 8 H (0-5) /hpf Urine Bacteria Few H (None) /hpf Urine Mucus Rare H (None) /hpf 12/08/23 12/08/23 Range/Units 09:45 09:45 WBC (3.8-10.6) k/uL RBC (3.80-5.40) m/uL Hgb (11.4-16.0) gm/dL Hct (34.0-46.0) % Neutrophils # (1.3-7.7) k/uL Lymphocytes # (1.0-4.8) k/uL D-Dimer 5.69 H (<0.60) mg/L FEU Sodium (137-145) mmol/L Potassium (3.5-5.1) mmol/L BUN (7-17) mg/dL Creatinine (0.52-1.04) mg/dL Glucose (74-99) mg/dL Calcium (8.4-10.2) mg/dL Amylase <30 L (30-110) U/L Lipase 18 L (23-300) U/L Urine Protein (Negative) Urine Blood (Negative) Ur Leukocyte Esterase (Negative) Urine WBC (0-5) /hpf Urine Bacteria (None) /hpf Urine Mucus (None) /hpf Diabetes panel 12/08/23 Range/Units 09:45 Sodium 132 L (137-145) mmol/L Potassium 3.4 L (3.5-5.1) mmol/L Chloride 100 (98-107) mmol/L Carbon Dioxide 25 (22-30) mmol/L BUN 20 H (7-17) mg/dL Creatinine 1.12 H (0.52-1.04) mg/dL Glucose 106 H (74-99) mg/dL Calcium 8.3 L (8.4-10.2) mg/dL Thyroid panel 12/08/23 Range/Units 09:45 TSH 2.100 (0.465-4.680) mIU/L Calcium panel 12/08/23 Range/Units 09:45 Calcium 8.3 L (8.4-10.2) mg/dL Pituitary panel 12/08/23 12/08/23 Range/Units 09:45 09:45 Sodium 132 L (137-145) mmol/L Potassium 3.4 L (3.5-5.1) mmol/L Chloride 100 (98-107) mmol/L Carbon Dioxide 25 (22-30) mmol/L BUN 20 H (7-17) mg/dL Creatinine 1.12 H (0.52-1.04) mg/dL Glucose 106 H (74-99) mg/dL Calcium 8.3 L (8.4-10.2) mg/dL TSH 2.100 (0.465-4.680) mIU/L Adrenal panel 12/08/23 Range/Units 09:45 Sodium 132 L (137-145) mmol/L Potassium 3.4 L (3.5-5.1) mmol/L Chloride 100 (98-107) mmol/L Carbon Dioxide 25 (22-30) mmol/L BUN 20 H (7-17) mg/dL Creatinine 1.12 H (0.52-1.04) mg/dL Glucose 106 H (74-99) mg/dL Calcium 8.3 L (8.4-10.2) mg/dL Assessment and Plan Assessment: 48-year-old female with history of 7 mm left-sided proximal stone, patient is septic from her stone, also evidence of calyceal rupture, discussed with her at this point I recommend proceeding with a cystoscopy and left stent insertion. Risk benefit and rationale was discussed. Discussed she will eventually require left-sided ureteroscopy with holmium laser once her UTI resolves as an outpatient
[2023-12-08] MEDS ORDERED: HYDROmorphone 2 MG/ML 1 ML SYRINGE IVP PRN (18:15)
--- NOTE | 2023-12-08 18:29 | P.OP ---
Date of Procedure: 12/08/23 Preoperative Diagnosis: Left ureteral stone Postoperative Diagnosis: Same Procedure(s) Performed: Cystoscopy and a left stent insertion Implants: 6 Ukrainian by 26 cm stent in the left ureter Anesthesia: NICA Surgeon: Sal Rae Estimated Blood Loss (ml): 1 Pathology: none sent Condition: stable Disposition: PACU Indications for Procedure: 48-year-old female with history of 7 mm left-sided proximal stone, patient is septic from her stone, also evidence of calyceal rupture, discussed with her at this point I recommend proceeding with a cystoscopy and left stent insertion. Risk benefit and rationale was discussed. Discussed she will eventually require left-sided ureteroscopy with holmium laser once her UTI resolves as an outpatient Operative Findings: Successful left stent insertion, purulent urine seen draining from the collecting system Description of Procedure: Patient brought the operating, general anesthesia was induced patient was prepped and draped in sterile fashion placed in dorsolithotomy position. Cystoscopy with a 22 Ukrainian sheath was inserted per urethra, cystoscopy was performed showed no abnormality within the bladder. Attention was then carried to the left ureteral orifice, a sensor wire was advanced under fluoroscopy and into the kidney, at this point a ureteral stent was passed over the wire, the proximal curl was realized on fluoroscopy and the distal curl was visualized using the cystoscope. Purulent urine was seen draining from the stent. A culture was obtained from the bladder after stent placement. The bladder was emptied at the end of the case. Patient tolerated procedure well was taken to recovery in stable condition
--- NOTE | 2023-12-08 19:09 | FL ---
EXAMINATION TYPE: FL guidance operating room DATE OF EXAM: 12/08/2023 6:36 PM COMPARISON: Pre Operative Images if available both CT/MRI or plain film CLINICAL INDICATION: Female, 48 years old with history of CYSTO LEFT SIDE STENT INSERTION; TECHNIQUE: FL guidance operating room, multiple fluoroscopic images provided for procedure. Total fluoroscopy time: 1.7 seconds Total submitted images to PACS: 1 DAP: 0.1094 mGym2 Gycm2 uGym2 cGycm2 or equivalent. FINDINGS: Multiple intraoperative fluoroscopic images were taken resulting in ureteral stent placement with sup erior pigtail in appropriate position projecting over the renal pelvis. No immediate intraoperative c omplication. Multilevel degeneration changes throughout the spine. IMPRESSION: 1. No evidence for intraoperative complication. 2. Please see the operative/procedural note for further details. [facility], , 12/08/2023 7:06 PM
[2023-12-08] MEDS: ACETAMINOPHEN TAB 325 MG TAB PO PRN (21:31)
[2023-12-09] MEDS: KETOROLAC 15 MG/ML 1 ML VIAL IVP PRN (06:25)
[2023-12-09] MEDS: ONDANSETRON 4 MG/2 ML VIAL IVP PRN (09:00)
--- NOTE | 2023-12-09 11:18 | P.PN ---
Subjective Progress Note Date: 12/09/23 No acute overnight event, tachycardia improved this morning. Denies any flank pain Objective - Vital Signs Vital signs: Vital Signs Temp 98.5 F 12/09/23 08:40 Pulse 94 12/09/23 08:40 Resp 16 12/09/23 08:40 BP 131/71 12/09/23 08:40 Pulse Ox 95 12/09/23 08:40 FiO2 Intake & Output 12/08/23 12/09/23 12/09/23 19:59 06:59 18:59 Intake Total Output Total Balance Weight Intake: IV Output: Urine Estimated Blood Loss Other: Voiding Method Toilet # Voids - Constitutional General appearance: Present: no acute distress - Gastrointestinal General gastrointestinal: Present: soft. Absent: distended, tenderness - Psychiatric Psychiatric: Present: A&O x's 3 - Labs CBC & Chem 7: 12/08/23 09:45 12/08/23 09:45 Labs: Abnormal Lab Results - Last 24 Hours (Table) 12/08/23 12/08/23 Range/Units 09:34 09:45 Amylase <30 L (30-110) U/L Lipase 18 L (23-300) U/L Urine Protein Trace H (Negative) Urine Blood Small H (Negative) Ur Leukocyte Esterase Moderate H (Negative) Urine WBC 8 H (0-5) /hpf Urine Bacteria Few H (None) /hpf Urine Mucus Rare H (None) /hpf Assessment and Plan Assessment: 48-year-old female with history of 7 mm left-sided proximal stone, patient is septic from her stone, also evidence of calyceal rupture, underwent left-sided stent insertion doing well this a.m. -Given the shortness of breath will keep in the hospital for 1 more day -Continue Zosyn -Will arrange for outpatient left-sided ureteroscopy with holmium laser and stent removal
[2023-12-09 12:06] LABS: Basophils % (A) 0 %; Eosinophils % (A) 0 %; HCT 29.2 % (34.0-46.0); HGB 9.8 gm/dL (11.4-16.0); Lymphocytes % (A) 8 %; MCH 30.6 pg (25.0-35.0); MCHC 33.4 g/dL (31.0-37.0); MCV 91.6 fL (80.0-100.0); Mean Platelet Volume 7.6; Monocytes # (A) 0.3 k/uL (0-1.0); Monocytes % (A) 2 %; Neutrophils # (A) 11.2 k/uL (1.3-7.7); Neutrophils % (A) 88 %; Platelet Count 223 k/uL (150-450); RBC 3.19 m/uL (3.80-5.40); RDW 13.2 % (11.5-15.5); WBC 12.6 k/uL (3.8-10.6)
[2023-12-09 12:18] LABS: African American GFR (CKD) 76 (>60 ml/min/1.73 sqM); Anion Gap 3 mmol/L; Blood Urea Nitrogen 24 mg/dL (7-17); Calcium 7.7 mg/dL (8.4-10.2); Carbon Dioxide 22 mmol/L (22-30); Chloride 111 mmol/L (98-107); Glucose 101 mg/dL (74-99); Non-African American GFR(CKD) 66 (>60 ml/min/1.73 sqM); Potassium 3.1 mmol/L (3.5-5.1); Sodium 136 mmol/L (137-145)
--- NOTE | 2023-12-09 13:10 | P.CONS ---
History of Present Illness - Reason for Consult Consult date: 12/08/23 Medical management Requesting physician: Sal Rae - Chief Complaint Dry heaving - History of Present Illness This is a pleasant 48-year-old patient who follows with Dr. Barr. Otherwise rather good health. 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 A week ago on a Sunday patient had a Walls macchicken with coffee. 0236 hrs. following that she still started dry heaving. Increasing abdominal pain. Some nausea vomiting. For 4 days she kept having significant abdominal pain. Also had some chills. Normally has 1 bowel movement a day at her baseline. Noticed that after she would eat food and lie down and felt of all the food was coming up. Abdominal pain and discomfort remained. Finally decided to come in. Review of systems: GEN.: Tired EYES: None HEENT: None NECK: None RESPIRATORY: None CARDIOVASCULAR: None GASTROINTESTINAL: Abdominal pain GENITOURINARY: None MUSCULOSKELETAL: None LYMPHATICS: None HEMATOLOGICAL: None PSYCHIATRY: None NEUROLOGICAL: None Social history: Patient is a 27-year-old son at home. 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 Does not smoke. Alcohol socially. No recreational drugs. Physical examination: VITAL SIGNS: 97.6, 86, 17, 114 x 71, 98% room air GENERAL: BMI 25.8, reclining bed slightly uncomfortable. EYES: Pupils equal. Conjunctiva elda l. HEENT: External appearance of nose and ears normal, oral cavity grossly normal. NECK: JVD not raised; masses not palpable. HEART: First and second heart sounds are normal; no edema. LUNGS: Respiratory rate normal; clear to auscultation. ABDOMEN: Soft, upper abdomen tenderness, no guarding rigidity amylase, liver spleen not palpable, no masses palpable. PSYCH: Alert and oriented x3; mood and affect elda l. MUSCULOSKELETAL:No Clubbing/cyanosis;muscles-grossly intact NEUROLOGICAL: Cranial nerves grossly intact; no facial asymmetry, power and sensation grossly intact. LYMPHATICS: No lymph nodes palpable in the axilla and neck INVESTIGATIONS, reviewed in the clinical context: December 08, 2023: White count 16.5 hemoglobin 10.4 platelets 217 sodium 132 potassium 3.4 BUN 20 creatinine 1.12 amylase less than 30 lipase 18 TSH 2.1 UA: Trace protein. Leukoesterase moderate. WBC 8 bacteria few. Urine hCG neg ative EKG tracing personally reviewed by me-normal sinus rhythm Chest CTA: Left upper quadrant masslike area. Assessment plan: -Acute abdominal pain. Patient says nausea vomiting for 4 days. Started off after eating a burger. Significant abdominal pain. Has some left upper abdominal tenderness. No guarding rigidity. Not a surgical abdomen. Elevated white count. No fever. Low-grade infection versus. Volvulus. Discussed with the ER physician. CT scan abdomen pelvis with contrast to be ordered. -Leukocytosis, consider infection. Hold off antibiotics until CT scan abdomen done. -Nausea vomiting. Keep n.p.o. for now. Further plan depending on CT scan abdomen results. Discussed with patient ER physician Dr. Vance. Did discuss with him did not think this exacerbation of GERD. At this point GI consultation not warranted. Past Medical History Past Medical History: No Reported History History of Any Multi-Drug Resistant Organisms: None Reported Past Surgical History: Tubal Ligation Additional Past Surgical History / Comment(s): bladder lift Past Anesthesia/Blood Transfusion Reactions: No Reported Reaction Past Psychological History: No Psychological Hx Reported Smoking Status: Never smoker Past Alcohol Use History: Occasional Past Drug Use History: None Reported Medications and Allergies Home Medications Medication Instructions Recorded Confirmed Type Multivitamins, Thera [Multivitamin 1 tab PO DAILY 12/08/23 12/08/23 History (formulary)] Allergies Allergy/AdvReac Type Severity Reaction Status Date / Time No Known Allergies Allergy Verified 12/08/23 15:56 Physical Exam Vitals: Vital Signs Temp Pulse Pulse Pulse Resp BP BP 12/09/23 08:40 98.5 F 94 16 131/71 12/09/23 04:00 98.3 F 94 16 129/72 12/09/23 00:00 98.5 F 96 16 132/64 12/08/23 20:00 98.1 F 97 16 147/61 12/08/23 19:34 117 H 23 105/58 12/08/23 19:19 112 H 22 102/57 12/08/23 19:04 123 H 22 106/59 12/08/23 18:49 111 H 26 H 103/58 12/08/23 18:34 99.5 F 124 H 16 101/55 12/08/23 15:46 144 H 18 115/63 Pulse Ox 12/09/23 08:40 95 12/09/23 04:00 96 12/09/23 00:00 94 L 12/08/23 20:00 94 L 12/08/23 19:34 94 L 12/08/23 19:19 94 L 12/08/23 19:04 94 L 12/08/23 18:49 94 L 12/08/23 18:34 95 12/08/23 15:46 98 Intake and Output 12/08/23 12/09/23 12/09/23 23:59 06:59 14:59 Intake Total Output Total Balance Intake: IV Output: Urine Estimated Blood Loss Other: Voiding Method Toilet # Voids Weight Results CBC & Chem 7: 12/09/23 11:34 12/09/23 11:34 Labs: Abnormal Lab Results - Last 24 Hours (Table) 12/08/23 12/09/23 12/09/23 Range/Units 09:45 11:34 11:34 WBC 12.6 H (3.8-10.6) k/uL RBC 3.19 L (3.80-5.40) m/uL Hgb 9.8 L (11.4-16.0) gm/dL Hct 29.2 L (34.0-46.0) % Neutrophils # 11.2 H (1.3-7.7) k/uL Sodium 136 L (137-145) mmol/L Potassium 3.1 L (3.5-5.1) mmol/L Chloride 111 H (98-107) mmol/L BUN 24 H (7-17) mg/dL Glucose 101 H (74-99) mg/dL Calcium 7.7 L (8.4-10.2) mg/dL Amylase <30 L (30-110) U/L Lipase 18 L (23-300) U/L
--- NOTE | 2023-12-09 13:26 | P.PN ---
Progress Note - Text Progress Note Date: 12/09/23 - Chief Complaint Dry heaving - History of Present Illness This is a pleasant 48-year-old patient who follows with Dr. Barr. Otherwise rather good health. 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 A week ago on a Sunday patient had a [employer] macchicken with coffee. 0236 hrs. following that she still started dry heaving. Increasing abdominal pain. Some nausea vomiting. For 4 days she kept having significant abdominal pain. Also had some chills. Normally has 1 bowel movement a day at her baseline. Noticed that after she would eat food and lie down and felt of all the food was coming up. Abdominal pain and discomfort remained. Finally decided to come in. November 07: Patient CT scan abdomen found to have 7 mm left-sided proximal ureteral stone. [place] to be septic from the same. With calyceal rupture. Patient underwent a left-sided cystoscopy with stent insertion by Dr. Rae. Started on IV Zosyn. Patient feeling much better today. Has had has not had any urinary symptoms. Spoke to Dr. Rae. He had seen pus coming out. During his procedure. Active Medications Acetaminophen (Acetaminophen Tab 325 Mg Tab) 650 mg PO Q6HR PRN PRN Reason: Mild Pain or Fever > 100.5 Last Admin: 12/09/23 08:59 Dose: 650 mg Hydromorphone HCl (Hydromorphone 2 Mg/Ml 1 Ml Syringe) 1 mg IVP Q4HR PRN PRN Reason: Pain Piperacillin Sod/Tazobactam (Sod 3.375 gm/ Sodium Chloride) 100 mls @ 25 mls/hr IVPB Q8HR [facility]; Protocol Last Admin: 12/09/23 08:59 Dose: 25 mls/hr Sodium Chloride (Saline 0.9%) 1,000 mls @ 130 mls/hr IV .Q7H42M [facility] Last Admin: 12/09/23 06:23 Dose: Not Given Ketorolac Tromethamine (Ketorolac 15 Mg/Ml 1 Ml Vial) 15 mg IVP Q6HR PRN PRN Reason: Moderate Pain (Scale 4 to 6) Stop: 12/11/23 15:30 Last Admin: 12/09/23 06:25 Dose: 15 mg Naloxone HCl (Naloxone 0.4 Mg/Ml 1 Ml Vial) 0.2 mg IV Q2M PRN PRN Reason: Opioid Reversal Ondansetron HCl (Ondansetron 4 Mg/2 Ml Vial) 4 mg IVP Q8HR PRN PRN Reason: Nausea And Vomiting Last Admin: 12/09/23 09:00 Dose: 4 mg Social history: Patient is a 27-year-old son at home. 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 Does not smoke. Alcohol socially. No recreational drugs. Physical examination: VITAL SIGNS: 98.2, 101, 16, 113 x 64, 94% room GENERAL: Reclining in bed, comfortable EYES: Pupils equal. Conjunctiva elda l. HEENT: External appearance of nose and ears normal, oral cavity grossly normal. NECK: JVD not raised; masses not palpable. HEART: First and second heart sounds are normal; no edema. LUNGS: Respiratory rate normal; clear to auscultation. ABDOMEN: Soft, no tenderness, no guarding rigidity amylase, liver spleen not palpable, no masses palpable. PSYCH: Alert and oriented x3; mood and affect elda l. MUSCULOSKELETAL:No Clubbing/cyanosis;muscles-grossly intact INVESTIGATIONS, reviewed in the clinical context: December 08: White count 12.6 hemoglobin 9.8 platelets 223 sodium 136 potassium 3.[address] abdomen pelvis: Moderate left hydronephrosis with evidence of pyelonephritis ascending infection secondary to obstructing 6 mm focus at the UP junction. Evidence of calyceal rupture with suspected excreted IV contrast. Renal ultrasound: Left renal fossa mass likely on the CT. Moderate left hydronephrosis. December 08, 2023: White count 16.5 hemoglobin 10.4 platelets 217 sodium 132 potassium 3.4 BUN 20 creatinine 1.12 amylase less than 30 lipase 18 TSH 2.1 UA: Trace protein. Leukoesterase moderate. WBC 8 bacteria few. Urine hCG negative EKG tracing personally reviewed by me-normal sinus rhythm Chest CTA: Left upper quadrant masslike area. Assessment plan: -Acute left pyelonephritis secondary to ureteral stone obstruction. Causing sepsis. IV Zosyn -Left ureteral proximal stone 7 mm. Status post left ureteral stent. Causing secondary hydronephrosis Clinically better -Left-sided secondary hydronephrosis from left renal stone Left-sided ureteral stent -Left renal calyceal rupture -Leukocytosis, secondary to above: Improving -Nausea vomiting. Secondary infection, better IV Zosyn. Clinically doing better. Increase activity. Subcu Lovenox. Discussed with Dr. Rae. And the patient. Past Medical History Past Medical History: No Reported History History of Any Multi-Drug Resistant Organisms: None Reported Past Surgical History: Tubal Ligation Additional Past Surgical History / Comment(s): bladder lift Past Anesthesia/Blood Transfusion Reactions: No Reported Reaction Past Psychological History: No Psychological Hx Reported Smoking Status: Never smoker Past Alcohol Use History: Occasional Past Drug Use History: None Reported
[2023-12-09] MEDS: POTASSIUM CHLORIDE ER 20 MEQ TAB.ER PO STA (14:42)
[2023-12-09] MEDS: LORazepam 0.5 MG TAB PO PRN (16:03)
[2023-12-10 08:23] VITALS: BP 158/71; PULSE 99; RESP 18; TEMP 98.2
--- NOTE | 2023-12-10 08:26 | P.DS ---
Providers Date of admission: 12/08/23 15:30 Attending physician: Sal Rae MD Consults: 12/09/23 10:51 Consult Physician Routine Consulting Provider: Kalyan Garvin Consult Reason/Comments: medical managment Do you want consulting provider notified?: Already Contacted Primary care physician: Emilio [facility] Course: the patient was admitted 12/08/23 for left flank pain. She had an obstructing left ureteral stone. She had a stent placed because of probable urinary tract infection with sepsis and pyelonephrosis.she has done well. She is ready for discharge home. Other than pressure from the stent her vitals are stable and she is afebrile. She'll be discharged home on Bactrim. She'll take Tylenol or Motrin for pain. Explained her she'll need a secondary ureteroscopy and laser l ithotripsy to the left ureteral stone. Her condition is good. Patient Condition at Discharge: Good Plan - Discharge Summary Discharge Rx Participant: No New Discharge Prescriptions: New Sulfamethox-Tmp 800-160Mg [Bactrim DS 800-160 mg] 1 tab PO Q12HR #20 tab No Action Multivitamins, Thera [Multivitamin (formulary)] 1 tab PO DAILY Discharge Medication List Multivitamins, Thera [Multivitamin (formulary)] 1 tab PO DAILY 12/08/23 [History] Sulfamethox-Tmp 800-160Mg [Bactrim DS 800-160 mg] 1 tab PO Q12HR #20 tab 12/10/23 [Rx] Follow up Appointment(s)/Referral(s): Emilio Barr DO [Primary Care Provider] - 1-2 days Sal Rae MD [STAFF PHYSICIAN] - 1 Week Discharge Disposition: HOME SELF-CARE
== END 2023-12-10 11:43 | disposition home or self-care (01) | DRG 854 ==
LOC: EC 09:08 → 6NMEDSUR 15:30 → 4SSUR 17:12 → 3SCARD 19:04
PROVIDERS: ADMIT Urology; ATTEND Urology
PROC: 0T778DZ Dilation of Left Ureter with Intraluminal Device, Via Natural or Artificial Opening Endoscopic (ICD-10-PCS; principal; 2023-12-08 18:00)
DX: A41.9 Sepsis, unspecified organism (principal); N13.6 Pyonephrosis; N20.1 Calculus of ureter; Z87.442 Personal history of urinary calculi
CPT/HCPCS: 36415; 71275; 74176; 76770; 80048; 81001; 81025; 82150; 83690; 84443; 84484; 85025; 85379; 85610; 85730; 87040; 87077; 87086; 87186; 93005; 96361; 96365; 96366; 96375; 99285

== ENCOUNTER 2023-12-18 08:41 | Day surgery (SDC) | payer SELFPAY ==
[2023-12-13 10:30] VITALS: BMI 28.8
--- NOTE | 2023-12-18 08:26 | P.HPIHPCON ---
History of Present Illness H&P Date: 12/18/23 Chief Complaint: Left ureteral stone This is a 48-year-old female with history of a 7 mm left-sided proximal stone status post stent insertion on December 08 for a septic stone. Patient is currently on antibiotics. Option of left-sided ureteroscopy with holmium laser was discussed with her. She is aware of the risk which includes but not limited to bleeding, infection, injury to the ureter Consent for Procedure: I have explained the operation/procedure to the patient, including the risks, benefits, side effects, alternative therapies (including not receiving the proposed treatment or service), the likelihood of the patient achieving his/her goals, and potential recuperation problems for the procedure/sedation/analgesia, as well as any blood products, if indicated. I also explained to the patient the risks, benefits and side effects of the alternatives, as well as the risks related to not receiving the proposed procedure, care, treatment, or services. Past Medical History Past Medical History: No Reported History Additional Past Medical History / Comment(s): KIDNEY STONES History of Any Multi-Drug Resistant Organisms: None Reported Past Surgical History: Bladder Surgery, Tubal Ligation Additional Past Surgical History / Comment(s): bladder lift, 12/08/23-LT URETER STENT Past Anesthesia/Blood Transfusion Reactions: No Reported Reaction Smoking Status: Never smoker - Past Family History Mother Family Medical History: Cancer Medications and Allergies Home Medications Medication Instructions Recorded Confirmed Type Sulfamethox-Tmp 800-160Mg [Bactrim 1 tab PO Q12HR #20 tab 12/10/23 12/13/23 Rx DS 800-160 mg] Allergies Allergy/AdvReac Type Severity Reaction Status Date / Time No Known Allergies Allergy Verified 12/13/23 10:19 Surgical - Exam - General no distress, no pain - Eyes normal ocular movement, no pale - ENT normal nares, normal mucosa - Respiratory normal expansion, normal respiratory effort - Abdomen Abdomen: soft, non tender Assessment and Plan Assessment: OR for left-sided ureteroscopy, holmium laser lithotripsy, stone basketing and stent removal
[~2023-12-18 08:41] MED LIST: HYDROmorphone 0.5 MG/0.5 ML SYRINGE IVP PRN
[2023-12-18] MEDS: IV FLUID CONTINUATION 1,000 ML IV ONE (09:31)
[2023-12-18] MEDS: LACTATED RINGERS 1,000 ML IV SCH (10:00)
[2023-12-18] MEDS: ONDANSETRON 4 MG/2 ML VIAL IVP ONE (10:01)
[2023-12-18] MEDS: DEXAMETHASONE SOD PHOSPHATE 4 MG/ML 1 ML VIAL IV ONE (10:01)
[2023-12-18] MEDS: MIDAZOLAM 2 MG/2 ML VIAL IV PRN (10:01)
[2023-12-18] MEDS: SCOPOLAMINE 1 MG/72 HR PATCH TRANSDERM ONE (10:01)
--- NOTE | 2023-12-18 10:24 | XR ---
EXAMINATION TYPE: XR KUB DATE OF EXAM: 12/18/2023 9:18 AM COMPARISON: None. CLINICAL INDICATION: Female, 48 years old with history of KIDNEY STONES, TECHNIQUE: XR KUB view(s) obtained. FINDINGS: There is a normal bowel gas pattern. Psoas margins are normal. No organomegaly is present. Left ureteral stent is present. Inferior pole left kidney calcification measuring 0.8 cm inferior rachel e is evident. IMPRESSION: 1. Inferior pole left renal calcification. 2. Left ureteral stent [facility], , 12/18/2023 10:22 AM
[2023-12-18] MEDS: METOCLOPRAMIDE 5 MG/ML 2 ML VIAL IVP STA (10:27)
[2023-12-18] MEDS ORDERED: PROPOFOL 10 MG/ML 20 ML VIAL IV ONE (10:28)
[2023-12-18] MEDS ORDERED: SUCCINYLCHOLINE CHLORIDE 200 MG/10 ML VIAL IV ONE (10:28)
[2023-12-18] MEDS ORDERED: LIDOCAINE 1% INJ 10MG/ML (20 ML MDV) ONE (10:28)
[2023-12-18] MEDS ORDERED: MIDAZOLAM 2 MG/2 ML VIAL ONE (10:28)
[2023-12-18] MEDS ORDERED: fentaNYL (PF) 50 MCG/ML 2 ML AMP ONE (10:28)
[2023-12-18] MEDS ORDERED: KETOROLAC 15 MG/ML 1 ML VIAL ONE (10:28)
[2023-12-18 11:21] VITALS: TEMP 99.9
--- NOTE | 2023-12-18 11:30 | FL ---
Intraoperative/procedural fluoroscopic services were provided for left-sided cystoscopy. Total fluoro scopy time is 2.1 seconds with a total of 1 submitted images to PACS. Total DAP [id number] mGym2. Flor rice see the operative note for further details. [facility], , 12/18/2023 11:27 AM
--- NOTE | 2023-12-18 11:31 | P.OP ---
Date of Procedure: 12/18/23 Preoperative Diagnosis: Ureteral stone Postoperative Diagnosis: Same Procedure(s) Performed: Cystoscopy, left ureteroscopy, holmium laser lithotripsy, stone basketing and stent removal Implants: none Anesthesia: NICA Surgeon: Sal Rae Estimated Blood Loss (ml): 5 Pathology: other (left ureteral stone) Condition: stable Disposition: PACU Indications for Procedure: This is a 48-year-old female with history of a 7 mm left-sided proximal stone status post stent insertion on December 08 for a septic stone. Patient is currently on antibiotics. Option of left-sided ureteroscopy with holmium laser was discussed with her. She is aware of the risk which includes but not limited to bleeding, infection, injury to the ureter Description of Procedure: Patient brought the operating room, general anesthesia was induced. She was prepped and draped in sterile fashion placed in dorsolithotomy position. Cystoscopy fitted with a 21 Cypriot sheath was inserted per urethra, cystoscopy was performed showed no abnormality within the bladder. Attention was then carried to the left ureteral orifice, the stent was grasped and removed to the meatus, as the stent was removed and a sensor wire was advanced through. Next a semirigid ureteroscope was inserted per urethra and advanced up the left ureteral orifice, the scope was advanced all the way up to the proximal ureter which showed no evidence of any stones along the course of the ureter, pullback ureteroscopy was performed showed no injury to the ureter or any ureteral stones. Next under fluoroscopy and 1113 Cypriot access sheath was passed over the wire into the proximal ureter. Next a flexible ureteroscope was inserted through the access sheath, renoscopy was performed which showed a soft stone along the lower pole of the kidney, it was consistent with a struvite stone. Using the holmium laser minimal fragmenting was performed, fragments were removed using the stone basket. Repeat renoscopy showed no sizable fragments or injury to the kidney. Pullback ureteroscopy was performed which showed no injury to the ureter or any ureteral stones, as ureteroscope was withdrawn a sensor wire was advanced through. Next a ureteral stent was passed over the wire, the proximal curl was realized on fluoroscopy and the distal curl was visualized using the cystoscope. The bladder was emptied at the end of the case. Patient tolerated procedure well was taken to recovery in stable condition
[2023-12-18 11:48] VITALS: RESP 16
[2023-12-18 12:21] VITALS: BP 121/77; PULSE 92
== END 2023-12-18 12:56 | disposition home or self-care (01) ==
LOC: OR 08:41
PROVIDERS: ATTEND Urology
DX: N20.1 Calculus of ureter (principal); Z98.51 Tubal ligation status
CPT/HCPCS: 81025; 84132; 82365; 74018; 52356; C1769; J2250; J0330; J1100; J2765; J0690; J2405; J2003; J3010; J1885; J2704

== ENCOUNTER → 2024-02-28 | Outpatient (CLI) | payer OTHER ==
--- NOTE | 2024-02-28 13:29 | MM ---
Reason for Exam: Screening (asymptomatic). Last mammogram was performed 2 year(s) and 3 month(s) ago. Patient History: Menarche at age 13. First Full-Term at age 20. Perimenopausal. Maternal cousin had breast cancer, age 40. Risk Values: Vera 5 year model risk: 0.6%. NCI Lifetime model risk: 6.8%. Prior Study Comparison: 02/01/2018 Bilateral Screening Mammogram, [facility]. 12/25/2019 Bilateral Screening Mammogram, [facility]. 11/28/2021 Bilateral MG 3D screening mammo w/cad, [facility]. Tissue Density: The breasts are heterogeneously dense, which may obscure small masses. Findings: Analyzed By CAD. Unchanged intramammary lymph node upper outer quadrant right breast. There is no suspicious group of microcalcifications or new suspicious mass in either breast. Overall Assessment: Benign, BI-RAD 2 Management: Screening Mammogram of both breasts in 1 year. . Patient should continue monthly self-breast exams. A clinical breast exam by your physician is recommended on an annual basis. This exam should not preclude additional follow-up of suspicious palpable abnormalities. Note on Vera scores and lifetime risk: 1. A Vera score greater than 3% is considered moderate risk. If this is the case, consider specialist referral to assess eligibility for a risk reducing agent. 2. If overall lifetime risk for the development of breast cancer is 20% or higher, the patient may qualify for future screening with alternating mammogram and breast MRI. [facility], , 02/28/2024 1:25 PM. Electronically signed and approved by: Jose Alberto Bruce M.D. Radiologist
== END | disposition home or self-care (01) ==
LOC: RADMAMWWP 12:37
PROVIDERS: ATTEND Obstetrics & Gynecology Obstetrics
DX: Z12.31 Encounter for screening mammogram for malignant neoplasm of breast (principal); Z80.3 Family history of malignant neoplasm of breast; R92.333 Mammographic heterogeneous density, bilateral breasts
CPT/HCPCS: 77063; 77067

== ENCOUNTER → 2024-04-01 | Outpatient (CLI) | payer OTHER ==
[2024-04-01 19:53] LABS: Basophils # (A) 0.03 X 10*3/uL (0.00-0.10); Basophils % (A) 0.5 %; Eosinophils # (A) 0.68 X 10*3/uL (0.04-0.35); Eosinophils % (A) 10.3 %; HGB 14.2 g/dL (12.0-15.0); Lymphocytes # (A) 1.62 X 10*3/uL (0.90-5.00); Lymphocytes % (A) 24.5 %; MCH 30.5 pg (27.0-32.0); MCHC 33.8 g/dL (32.0-37.0); MCV 90.3 FL (80.0-97.0); Mean Platelet Volume 8.9 FL (9.5-12.2); Monocytes # (A) 0.41 X 10*3/uL (0.20-1.00); Monocytes % (A) 6.2 %; NRBC Per 100 WBC 0 X 10*3/uL (0.00-0.01); Neutrophils # (A) 3.83 X 10*3/uL (1.80-7.70); Platelet Count 284 X 10*3/uL (140-440); RBC 4.65 X 10*6/uL (4.10-5.20); RBC Morphology Normal (Normal); RDW 11.9 % (11.5-14.5)
== END | disposition home or self-care (01) ==
LOC: LABPAT 14:08
PROVIDERS: ATTEND Obstetrics & Gynecology Obstetrics
DX: Z01.812 Encounter for preprocedural laboratory examination (principal)
CPT/HCPCS: 85025

== ENCOUNTER 2024-04-10 08:45 | Day surgery (SDC) | payer OTHER ==
[~2024-04-10 08:45] MED LIST changes: -HYDROmorphone 0.5 MG/0.5 ML SYRINGE IVP PRN; +Pre Op ABX Message 1 EACH MISC MISCELLANE ONE
[2024-04-10] MEDS: IV FLUID CONTINUATION 1,000 ML IV ONE (09:20)
[2024-04-10] MEDS: LIDOCAINE 1% (10MG/ML) FOR IV START INTRADERMA STA (09:20)
[2024-04-10] MEDS: LACTATED RINGERS 1,000 ML IV SCH (09:20)
[2024-04-10] MEDS: FAMOTIDINE 20 MG/2 ML VIAL IV STA (09:26)
[2024-04-10] MEDS: ONDANSETRON 4 MG/2 ML VIAL IVP ONE (09:26)
[2024-04-10] MEDS: DEXAMETHASONE SOD PHOSPHATE 4 MG/ML 1 ML VIAL IV ONE (09:26)
[2024-04-10] MEDS ORDERED: PROPOFOL 10 MG/ML 20 ML VIAL IV ONE (09:31)
[2024-04-10] MEDS ORDERED: fentaNYL (PF) 50 MCG/ML 2 ML AMP ONE (09:31)
[2024-04-10] MEDS ORDERED: KETOROLAC 15 MG/ML 1 ML VIAL ONE (09:31)
[2024-04-10] MEDS ORDERED: MIDAZOLAM 2 MG/2 ML VIAL ONE (09:31)
[2024-04-10] MEDS ORDERED: LIDOCAINE 1% INJ 10MG/ML (20 ML MDV) ONE (09:31)
[2024-04-10 10:14] VITALS: TEMP 96.8
[2024-04-10] MEDS: HYDROmorphone 0.5 MG/0.5 ML SYRINGE IVP PRN (10:39)
--- NOTE | 2024-04-10 10:40 | P.OP ---
Date of Procedure: 04/10/24 Preoperative Diagnosis: Heavy menstrual bleeding Postoperative Diagnosis: Same Procedure(s) Performed: Hysteroscopy, dilation and curettage, endometrial ablation with NovaSure Anesthesia: MAC Surgeon: Hannah Key Estimated Blood Loss (ml): 5 Urine output (ml): 10 Pathology: other (Endometrial curettings) Condition: stable Disposition: PACU Indications for Procedure: Heavy menstrual bleeding, dysmenorrhea Operative Findings: Endometrial polyp, proliferative endometrium Description of Procedure: Patient was taken back to the operating room where general anesthesia was obtained without difficulty by the anesthesia department. She was prepped and draped in normal sterile fashion the dorsolithotomy position. A red rubber catheter was used to drain the bladder of clear yellow urine. Weighted speculum placed in the posterior vaginal vault, the anterior lip of the cervix was visualized and grasped with a single-tooth tenaculum. The endocervical canal was then serially dilated. Hysteroscope was placed through the cervix and toward the endometrial cavity and intact cavity with a polyp is appreciated. Pictures are taken and the hysteroscope was removed. A sharp curettage was then performed the specimen was then sent to pathology for analysis. The NovaSure was then opened and set to the appropriate measurements for this patient's cavity length of 5, width of 3.5 power of 96 total cycle length of 39 seconds. After cycle cavity assessment was completed cycle was allowed to occur. 1 cycle was completed NovaSure was removed without difficulty. Single-tooth tenaculum was taken off of the anterior lip of the cervix. Hemostasis was noted. All instruments were removed from the patient's vaginal vault. All counts were noted be correct x 2. Patient tolerated procedure well and was taken to the recovery room awake in stable condition.
[2024-04-10 11:27] VITALS: BP 134/74; PULSE 65; RESP 16
== END 2024-04-10 11:38 | disposition home or self-care (01) ==
LOC: OR 08:45
PROVIDERS: ATTEND Obstetrics & Gynecology Obstetrics
DX: N92.0 Excessive and frequent menstruation with regular cycle (principal); N94.6 Dysmenorrhea, unspecified; N84.0 Polyp of corpus uteri; I10 Essential (primary) hypertension; F41.9 Anxiety disorder, unspecified; Z79.899 Other long term (current) drug therapy; Z98.890 Other specified postprocedural states; Z87.442 Personal history of urinary calculi
CPT/HCPCS: 81025; 58563; J2250; J1100; J2405; J2003; J3010; J3490; J1885; J2704; J1171; 88305

== ENCOUNTER → 2024-07-16 | Outpatient (CLI) | payer OTHER ==
[2024-07-16 15:52] LABS: HCT 41.4 % (37.2-46.3); HGB 14.2 g/dL (12.0-15.0); MCH 31.1 pg (27.0-32.0); MCHC 34.3 g/dL (32.0-37.0); MCV 90.8 FL (80.0-97.0); Mean Platelet Volume 8.9 FL (9.5-12.2); NRBC Per 100 WBC 0 X 10*3/uL (0.00-0.01); Platelet Count 271 X 10*3/uL (140-440); RBC 4.56 X 10*6/uL (4.10-5.20); RDW 11.4 % (11.5-14.5); WBC 4.32 X 10*3/uL (4.50-10.00)
[2024-07-16 16:11] LABS: Blood Urea Nitrogen 31.2 mg/dL (9.0-27.0); Calcium 9.6 mg/dL (8.7-10.3); Carbon Dioxide 23.9 mmol/L (21.6-31.8); Chloride 104 mmol/L (96-109); Glucose 87 mg/dL (70-110); Potassium 4.8 mmol/L (3.5-5.5); Sodium 138 mmol/L (135-145)
== END | disposition home or self-care (01) ==
LOC: LABWHC1 10:33
PROVIDERS: ATTEND Family Medicine
DX: I10 Essential (primary) hypertension (principal); E66.3 Overweight
CPT/HCPCS: 36415; 80048; 83036; 85027

== ENCOUNTER → 2024-07-23 | Outpatient (CLI) | payer OTHER ==
[2024-07-23 14:38] LABS: Basophils # (A) 0.03 10*3/uL (0.00-0.10); Basophils % (A) 0.6 %; HCT 39.4 % (37.2-46.3); Lymphocytes # (A) 1.71 10*3/uL (0.90-5.00); Lymphocytes % (A) 36.3 %; MCH 32.5 pg (27.0-32.0); MCHC 35.5 g/dL (32.0-37.0); MCV 91.4 fL (80.0-97.0); Mean Platelet Volume 8.8 fL (9.5-12.2); Monocytes # (A) 0.28 10*3/uL (0.20-1.00); Monocytes % (A) 5.9 %; Neutrophils # (A) 2.68 10*3/uL (1.80-7.70); Platelet Count 284 10*3/uL (140-440); RBC 4.31 10*6/uL (4.10-5.20); RDW 11.2 % (11.5-14.5); WBC 4.71 10*3/uL (4.50-10.00)
== END | disposition home or self-care (01) ==
LOC: LABWHC1 13:59
PROVIDERS: ATTEND Family Medicine
DX: D50.0 Iron deficiency anemia secondary to blood loss (chronic) (principal)
CPT/HCPCS: 36415; 85025